=== PATIENT | female | born 1965 | race Caucasian/White ===

== ENCOUNTER 2016-12-04 14:08 | Inpatient (IN) | payer MEDICARE, MEDICAID ==
--- NOTE | 2016-12-04 14:45 | ED Physician Chart ---
Chief Complaint/HPI - Patient Information Date Seen:: 12/04/16 Time Seen:: 14:30 Chief Complaint:: auditory hallucinations History of Present Illness:: for the last two days has been hearing voices telling her to hurt herself and others. Has had cough productive of green sputum for the last one week. Denies fever. Allergies:: Allergies Allergy/AdvReac Type Severity Reaction Status Date / Time No Known Allergies Allergy Verified 12/04/16 14:38 Historian:: Patient Review:: Nurse's Note Reviewed, EMS run form Reviewed Review of Systems - Review of Systems General/Constitutional: No fever, No chills Skin: No skin lesions Head: No headache Eyes: No loss of vision ENT: No earache Neck: No neck pain Cardio Vascular: No chest pain Pulmonary: No SOB GI: No nausea, No vomiting, No diarrhea G/U: No dysuria Musculoskeletal: No bone or joint pain, No back pain Endocrine: No polyuria, No polydipsia Psychiatric: Prior psych history Hematopoietic: No bruising Allergic/Immuno: No urticaria Neurological: No syncope Past Medical History - Past Medical History Past Medical History: DM, Asthma/COPD, Other Family History: Diabetes Melitus, HTN Social History: Smoker, Alcohol, Other (smokes two pack per day; drinks alcohol occasionally) Surgical History: Appendectomy Psychiatricy History: Schizophrenia Medication: Reviewed Family Medical History - Family Member Mother Name:: KAMILLE STEVE Age: 99 Ethnicity: Non- Living Status: Hx Family Hypertension: Yes Hx Family Diabetes: Yes Physical Exam - Physical Examination General/Constitutional: Well-developed, well-nourished, Alert, No distress Head: Atraumatic Eyes: Lids, conjuctiva normal, PERRL Skin: Nl inspection, No rash, No skin lesions, No ecchymosis ENMT: External ears, nose nl, TM canals nl, Nasal exam nl, Oropharynx nl, Tonsils nl Other ENMT comments:: 4/4 peridontal disease Neck: No nuchal rigidity Respiratory: Nl effort/Exclusion, Clear to Auscultation Other Respiratory comments:: diffusely decreased expiratory sounds Cardio Vascular: RRR, NL S1 S2 Other Cardio Vascular comments:: 2/6 systolic murmur GI: No tenderness/rebounding/guarding, No organomegaly, No hernia, Normal BS's, Nondistended, No mass/bruits, No McBurney tenderness : No CVA tenderness Extremities: Normal digits & nails Neuro/Psych: Alert/oriented, No focal deficits Misc: Normal back, No paraspinal tenderness Labs/Radiology/EKG Results - Lab Results Comments:: Laboratory Results - last 24 hr 12/04/16 12/04/16 12/04/16 14:25 14:45 14:45 WBC 5.6 RBC 4.82 Hgb 15.6 H Hct 45.9 H MCV 95.2 MCH 32.3 H MCHC Differential 33.9 RDW 12.7 Plt Count 123 L MPV 7.8 Neutrophils % 59.7 Lymphocytes % 27.6 Monocytes % 6.9 Eosinophils % 5.3 H Basophils % 0.5 Sodium 139 Potassium 3.7 Chloride 108 H Carbon Dioxide 27.4 Anion Gap 7.3 BUN 16 Creatinine 0.6 Est GFR ( Amer) > 60.0 Est GFR (Non-Af Amer) > 60.0 BUN/Creatinine Ratio 26.7 Glucose 99 Uric Acid Calcium 9.3 Total Bilirubin 0.7 AST 18 ALT 15 Alkaline Phosphatase 89 Total Protein 6.8 Albumin 3.7 Globulin 3.1 Albumin/Globulin Ratio 1.2 TSH Urine Source CLEAN C Urine Color YELLOW Urine Clarity HAZY Urine pH 5.5 Ur Specific [place] 1.025 Urine Protein NEGATIVE Urine Glucose (UA) NEGATIVE Urine Ketones NEGATIVE Urine Blood TRACE Urine Nitrate POSITIVE H Urine Bilirubin NEGATIVE Urine Urobilinogen 0.2 Ur Leukocyte Esterase SMALL H Urine RBC 2-5 Urine WBC 6-10 H Ur Epithelial Cells FEW Urine Bacteria MODERATE 12/04/16 12/04/16 14:45 14:45 WBC RBC Hgb Hct MCV MCH MCHC Differential RDW Plt Count MPV Neutrophils % Lymphocytes % Monocytes % Eosinophils % Basophils % Sodium Potassium Chloride Carbon Dioxide Anion Gap BUN Creatinine Est GFR ( Amer) Est GFR (Non-Af Amer) BUN/Creatinine Ratio Glucose Uric Acid 4.5 Calcium Total Bilirubin AST ALT Alkaline Phosphatase Total Protein Albumin Globulin Albumin/Globulin Ratio TSH 0.89 Urine Source Urine Color Urine Clarity Urine pH Ur Specific [place] Urine Protein Urine Glucose (UA) Urine Ketones Urine Blood Urine Nitrate Urine Bilirubin Urine Urobilinogen Ur Leukocyte Esterase Urine RBC Urine WBC Ur Epithelial Cells Urine Bacteria - EKG Interpretations Rhythm: NSR [place]: normal Rate: 74 Comments:: notched P waves in inferior leads ED Septic Shock - . Is Septic Shock (SBP<90, OR Lactate>4 mmol\L) present?: No Reassessment (Disposition) - Reassessment Reassessment Condition:: Unchanged - Diagnosis Diagnosis:: COPD; nicotine abuse; self harm ideation - Patient Disposition Admitted to:: Med/Surg Spoke to:: Olu Reich Admitting Medical Physician:: Olu Recih Condition at Disposition:: Unchanged
[2016-12-04 14:52] LABS: % BASOPHILS 0.5 % (0.0-2.0); % EOSINOPHILS 5.3 % (0.0-5.0); % LYMPHOCYTES 27.6 % (20.0-50.0); % MONOCYTES 6.9 % (2.0-10.0); % NEUTROPHILS 59.7 % (40.0-80.0); HEMATOCRIT 45.9 % (35.0-45.0); HEMOGLOBIN 15.6 gm/dL (11.7-15.5); MEAN CELL VOLUME 95.2 fl (81-100); MEAN CORPUSCULAR HEMOGLOBIN 32.3 pg (27.0-31.0); MEAN CORPUSCULAR HGB CONC 33.9 pg (28.0-36.0); MEAN PLATELET VOLUME 7.8 fl; NEUTROPHILE ABSOLUTE 3.4 Th/cmm (1.8-8.0); PLATELET COUNT 123 Th/cmm (150-400); RED BLOOD COUNT 4.82 Mil/cmm (3.80-5.10); RED CELL DISTRIBUTION WIDTH 12.7 % (11.5-20.0); WHITE BLOOD COUNT 5.6 Th/cmm (4.8-10.8)
[2016-12-04 15:05] LABS: ALB/GLOB RATIO 1.2 (1.0-1.8); ALKALINE PHOSPHATASE 89 U/L (34-104); ANION GAP 7.3 (7.0-16.0); BILIRUBIN,TOTAL 0.7 mg/dL (0.3-1.0); BUN - UREA NITROGEN 16 mg/dL (7-25); BUN/CREATININE RATIO 26.7; CALCIUM SERUM 9.3 mg/dL (8.6-10.3); CARBON DIOXIDE 27.4 mEq/L (21.0-31.0); CHLORIDE 108 mEq/L (98-107); CREATININE - SERUM 0.6 mg/dL (0.6-1.2); GLUCOSE 99 mg/dL (70-105); POTASSIUM SERUM 3.7 mEq/L (3.5-5.1); SGOT 18 U/L (13-39); SGPT/ALT 15 U/L (7-52); SODIUM SERUM 139 mEq/L (136-145)
[2016-12-04 15:14] LABS: URINE BILIRUBIN NEGATIVE (NEGATIVE); URINE BLOOD TRACE (NEGATIVE); URINE COLOR YELLOW; URINE GLUCOSE (UA) NEGATIVE (NEGATIVE); URINE KETONE NEGATIVE (NEGATIVE); URINE PH 5.5; URINE PROTEIN NEGATIVE (NEGATIVE); URINE UROBILINOGEN 0.2 E.U./dL (0.2 - 1.0)
[2016-12-04 15:16] LABS: URINE BACTERIA MODERATE /hpf (NONE SEEN); URINE EPITHELIAL CELLS FEW /lpf (FEW)
--- NOTE | 2016-12-04 16:05 | Diagnostic Imaging Report ---
Portable chest x-ray History: Shortness of breath, COPD Allowing for portable technique the heart size is normal. No focal pulmonary parenchymal processes. No hilar or mediastinal abnormalities. Degenerative changes seen in the spine. Impression: No acute abnormalities.
--- NOTE | 2016-12-04 18:52 | Admit Criteria Form ---
Admit Criteria Forms - Admit Criteria Diagnosis: PSYCHIATRIC DISORDERS Clinical Indications for Inpatient Care (Place 'X' for any and all applicable criteria): Ongoing inpatient care may be needed for ANY ONE of the following(1)(2)(3)(4)(6) (7)(8): [ ]I. Danger to self or others not manageable at lower level of care. [ ]II. Grave disability (eg, inability to perform self care necessary at lower level of care) [ ]III. Agitation or inappropriate behavior interfering with care for primary condition (eg, attempting to discontinue lines or drains prematurely, unable to cooperate with respiratory care) [X]IV. Severe disability or disorder indicated by ALL of the following: [X]a) Severe behavioral health disorder-related symptoms or condition indicated by ANY ONE of the following: [ ]i) Severe problem with cognition, memory, judgment, or impulse control [X]ii) Severe clinical manifestations (eg, hallucinations, delusions, other acute psychotic symptoms, kaiden, extreme agitation or anxiety) [X]b) Patient management at lower level of care is not feasible until acute intervention or modification is initiated. Extended stay beyond goal length of stay for the primary condition may be indicated when ANY ONE of the following is present: (1)(2)(3)(4): [ ]a) Patient is a danger to self or others and not manageable at lower level of care. [ ]b) Behavior crisis management, including physical or chemical restraints, is required and is not available at a lower level of care. [ ]c) Behavioral symptoms (e.g., agitation, somnolence, inappropriate behavior) are present, and are not manageable at a lower level of care. [ ]d) Patient cannot understand follow-up treatment and crisis plan. [ ]e) Provider and supports are not sufficiently available at lower level of care. [ ]f) Patient cannot participate (e.g., verify absence of plan for harm) and is in needed of monitoring. The original [facility] content created by [facility] has been revised. The portions of the content which have been revised are identified through the use of italic text or in bold, and [facility] has neither reviewed nor approved the modified material. All other unmodified content is copyright [facility]. Please see references footnoted in the original [facility] edition 2016 Admit Criteria Met?: Yes
[2016-12-04] MEDS ORDERED: guaiFENesin 200 MG/10 ML UDC PO PRN (20:20)
[2016-12-04] MEDS ORDERED: Albuterol Nebulizer 2.5mg/3mL IH SCH (21:00)
[2016-12-04] MEDS ORDERED: Ipratropium Neb 0.5 mg/2.5 mL UD IH SCH (21:00)
[2016-12-04] MEDS: Sodium Chloride 0.45% 1,000 ML IV SCH (21:08)
[2016-12-04] MEDS: Levofloxacin 500mg/100mL 500 MG/100 ML BAG IV SCH (21:09)
[2016-12-04] MEDS: methylPREDNISolone SS 40 mg Vial IVP SCH (21:11)
[2016-12-04] MEDS: INSULIN ASPART, RECOMBINANT 100 UNITS/ML SUBQ SCH (21:18)
[2016-12-05] MEDS: methylPREDNISolone SS 40 mg Vial IVP SCH ×3 (05:39→20:21)
[2016-12-05] MEDS: INSULIN ASPART, RECOMBINANT 100 UNITS/ML SUBQ SCH ×4 (06:38→20:28)
[2016-12-05] MEDS: Ipratropium Neb 0.5 mg/2.5 mL UD HHN SCH ×4 (06:56→19:06)
[2016-12-05] MEDS: Benztropine 1 MG TAB PO SCH ×2 (08:58→17:31)
[2016-12-05] MEDS ORDERED: PAROXETINE MESYLATE PO SCH (09:00)
[2016-12-05] MEDS ORDERED: METFORMIN HCL 500 MG PO SCH (09:00)
[2016-12-05 11:09] LABS: ALB/GLOB RATIO 1.1 (1.0-1.8); ALKALINE PHOSPHATASE 83 U/L (34-104); ANION GAP 10.1 (7.0-16.0); BILIRUBIN,TOTAL 0.3 mg/dL (0.3-1.0); BUN - UREA NITROGEN 18 mg/dL (7-25); CALCIUM SERUM 9.3 mg/dL (8.6-10.3); CARBON DIOXIDE 24.5 mEq/L (21.0-31.0); CHLORIDE 105 mEq/L (98-107); CREATININE - SERUM 0.5 mg/dL (0.6-1.2); GLUCOSE 237 mg/dL (70-105); POTASSIUM SERUM 3.6 mEq/L (3.5-5.1); SGOT 13 U/L (13-39); SGPT/ALT 13 U/L (7-52); SODIUM SERUM 136 mEq/L (136-145)
[2016-12-05 11:12] LABS: BNP 24.9 pg/mL (5.0-100.0)
[2016-12-05] MEDS: Albuterol Nebulizer 2.5mg/3mL HHN SCH ×2 (15:07→19:06)
[2016-12-05] MEDS: Sodium Chloride 0.45% 1,000 ML IV SCH (20:19)
[2016-12-05] MEDS: Levofloxacin 500mg/100mL 500 MG/100 ML BAG IV SCH (20:20)
--- NOTE | 2016-12-05 20:57 | History & Physical ---
CHIEF COMPLAINT: Increasing agitation and increasing shortness of breath. HISTORY OF PRESENT ILLNESS: This is a 51 years old female with history of diabetes, hypertension, hypercholesterolemia, gout who was admitted from Board and Care ____, increasing agitation and shortness of breath. The patient was seen in the ER and diagnosed with COPD exacerbation and ____ disorder. The patient was admitted for further management. PAST MEDICAL HISTORY: As mentioned in the history present illness. PAST SURGICAL HISTORY: Appendectomy. ALLERGIES: No known drug allergies. MEDICATIONS: Paxil, ____, Atrovent, Lotensin, Haldol, Zyprexa, Zocor ____. FAMILY HISTORY: Noncontributory. SOCIAL HISTORY: The patient smokes 2 packs per day, drinks on occasion, ____ crack cocaine. Denies intravenous drug use. The patient ____ with 5 children. REVIEW OF SYSTEMS: GENERAL: Complains of not feeling well. HEENT: No blurred vision. NECK: No neck pain. LUNGS: ____ COPD. ____. HEART: The patient with hypertension and diabetes. ABDOMEN: No nausea, vomiting, or abdominal pain. GENITOURINARY: The patient denies any increased frequency or dysuria. NEUROLOGIC: No headaches, seizure or syncope. PSYCHIATRIC: As stated above. PHYSICAL EXAMINATION: VITAL SIGNS: Blood pressure 126/72, respirations 18, pulse 78, temperature 97.7. GENERAL: An elderly female of her stated age. NECK: Supple. No mass. LUNGS: ____ rhonchi. HEART: Regular rate and rhythm without appreciable murmurs. ABDOMEN: Soft, nontender, positive bowel sounds. EXTREMITIES: No clubbing, cyanosis or edema. NEUROLOGIC: Limited movement of all 4 extremities. LABORATORY DATA: WBC ____, hemoglobin 15, platelets 123. Sodium ____, creatinine 0.6. Blood sugar 237 ____. Albumin ____. UA, 10 wbc's. ASSESSMENT: 1. Acute chronic obstructive pulmonary disease exacerbation. 2. Acute bronchitis. 3. Urinary tract infection. 4. Increasing agitation. 5. Schizoaffective disorder. 6. Diabetes. 7. Erythrocytosis. 8. Low albumin. 9. Thrombocytopenia. 10. Gout. 11. Hypercholesterolemia. PLAN: We will continue the patient on gentle hydration ____ also on bronchodilator treatment and IV steroids ____. Blood culture has been sent. The patient was referred to Psychiatry. This was discussed with nursing staff as well as the patient. JOB# [id number]
[2016-12-06] MEDS: methylPREDNISolone SS 40 mg Vial IVP SCH ×3 (05:22→20:46)
[2016-12-06] MEDS: Ipratropium Neb 0.5 mg/2.5 mL UD HHN SCH ×4 (07:14→19:50)
[2016-12-06] MEDS: Albuterol Nebulizer 2.5mg/3mL HHN SCH ×4 (07:14→19:49)
[2016-12-06] MEDS: Benztropine 1 MG TAB PO SCH ×2 (09:39→17:50)
--- NOTE | 2016-12-06 10:58 | Internal Medicine Prog Note ---
Internal Medicine Subjective - Subjective Service Date: 12/06/16 Patient seen and examined:: with staff Patient is:: awake, verbal Per staff patient is:: no adverse event Internal Medicine Objective - Results Result Diagrams: 12/04/16 14:45 12/05/16 10:13 Recent Labs: Laboratory Last Values WBC 5.6 Th/cmm (4.8-10.8) 12/04/16 14:45 RBC 4.82 Mil/cmm (3.80-5.10) 12/04/16 14:45 Hgb 15.6 gm/dL (11.7-15.5) H 12/04/16 14:45 Hct 45.9 % (35.0-45.0) H 12/04/16 14:45 MCV 95.2 fl (81-100) 12/04/16 14:45 MCH 32.3 pg (27.0-31.0) H 12/04/16 14:45 MCHC Differential 33.9 pg (28.0-36.0) 12/04/16 14:45 RDW 12.7 % (11.5-20.0) 12/04/16 14:45 Plt Count 123 Th/cmm (150-400) L 12/04/16 14:45 MPV 7.8 fl 12/04/16 14:45 Neutrophils % 59.7 % (40.0-80.0) 12/04/16 14:45 Lymphocytes % 27.6 % (20.0-50.0) 12/04/16 14:45 Monocytes % 6.9 % (2.0-10.0) 12/04/16 14:45 Eosinophils % 5.3 % (0.0-5.0) H 12/04/16 14:45 Basophils % 0.5 % (0.0-2.0) 12/04/16 14:45 Sodium 136 mEq/L (136-145) 12/05/16 10:13 Potassium 3.6 mEq/L (3.5-5.1) 12/05/16 10:13 Chloride 105 mEq/L (98-107) 12/05/16 10:13 Carbon Dioxide 24.5 mEq/L (21.0-31.0) 12/05/16 10:13 Anion Gap 10.1 (7.0-16.0) 12/05/16 10:13 BUN 18 mg/dL (7-25) 12/05/16 10:13 Creatinine 0.5 mg/dL (0.6-1.2) L 12/05/16 10:13 Est GFR ( Amer) > 60.0 ml/min (>90) 12/05/16 10:13 Est GFR (Non-Af Amer) > 60.0 ml/min 12/05/16 10:13 BUN/Creatinine Ratio 36.0 12/05/16 10:13 Glucose 237 mg/dL (70-105) H 12/05/16 10:13 POC Glucose 235 MG/DL (70 - 105) H 12/06/16 09:38 Hemoglobin A1c % 5.3 % (4.0-6.0) 12/05/16 10:13 Uric Acid 4.5 mg/dL (2.3-6.6) 12/04/16 14:45 Calcium 9.3 mg/dL (8.6-10.3) 12/05/16 10:13 Total Bilirubin 0.3 mg/dL (0.3-1.0) 12/05/16 10:13 AST 13 U/L (13-39) 12/05/16 10:13 ALT 13 U/L (7-52) 12/05/16 10:13 Alkaline Phosphatase 83 U/L (34-104) 12/05/16 10:13 Ammonia 56 umol/L (16-53) H 12/05/16 10:13 B-Natriuretic Peptide 24.9 pg/mL (5.0-100.0) 12/05/16 10:13 Total Protein 6.8 gm/dL (6.0-8.3) 12/05/16 10:13 Albumin 3.6 gm/dL (3.7-5.3) L 12/05/16 10:13 Globulin 3.2 gm/dL 12/05/16 10:13 Albumin/Globulin Ratio 1.1 (1.0-1.8) 12/05/16 10:13 TSH 0.89 uIU/ml (0.34-5.60) 12/04/16 14:45 Urine Source CLEAN C 12/04/16 14:25 Urine Color YELLOW 12/04/16 14:25 Urine Clarity HAZY (CLEAR) 12/04/16 14:25 Urine pH 5.5 12/04/16 14:25 Ur Specific [place] 1.025 (1.005-1.030) 12/04/16 14:25 Urine Protein NEGATIVE mg/dL (NEGATIVE) 12/04/16 14:25 Urine Glucose (UA) NEGATIVE mg/dL (NEGATIVE) 12/04/16 14:25 Urine Ketones NEGATIVE mg/dL (NEGATIVE) 12/04/16 14:25 Urine Blood TRACE (NEGATIVE) 12/04/16 14:25 Urine Nitrate POSITIVE (NEGATIVE) H 12/04/16 14:25 Urine Bilirubin NEGATIVE (NEGATIVE) 12/04/16 14:25 Urine Urobilinogen 0.2 E.U./dL (0.2 - 1.0) 12/04/16 14:25 Ur Leukocyte Esterase SMALL (NEGATIVE) H 12/04/16 14:25 Urine RBC 2-5 /hpf (0-5) 12/04/16 14:25 Urine WBC 6-10 /hpf (0-5) H 12/04/16 14:25 Ur Epithelial Cells FEW /lpf (FEW) 12/04/16 14:25 Urine Bacteria MODERATE /hpf (NONE SEEN) 12/04/16 14:25 RPR NONREACTIVE (NONREACTIVE) 12/04/16 14:45 - Physical Exam Vitals and I&O: Vital Signs Temp 98.6 F 12/06/16 08:00 Pulse 106 12/06/16 09:38 Resp 18 12/06/16 08:00 BP 147/94 12/06/16 09:38 Pulse Ox 96 12/05/16 20:00 Intake & Output 12/05/16 12/06/16 12/06/16 18:59 06:59 18:59 Intake Total 3000 100 Balance 3000 100 Intake: Intake, IV Amount 1000 100 Levofloxacin 500mg/100mL 100 500 mg In 100 ml @ 100 mls/hr IV Q24HR AILYN Rx#: [id number] Sodium Chloride 0.45% 1, 1000 000 ml @ 70 mls/hr IV . [id number] AILYN Rx#:[id number] Oral 2000 Other: # Voids 3 Active Medications: Current Medications Acetaminophen (Tylenol) 650 mg PO Q4HR PRN PRN Reason: Pain or Fever >101 Stop: 02/02/17 20:19 Albuterol Sulfate (Albuterol 2.5mg/3ml Neb Ud) 2.5 mg HHN QIDRT AILYN Stop: 02/03/17 10:59 Last Admin: 12/06/16 07:14 Dose: 2.5 mg Allopurinol (Zyloprim) 100 mg PO DAILY AILYN Stop: 02/03/17 08:59 Last Admin: 12/06/16 09:38 Dose: 100 mg Benazepril HCl (Lotensin) 20 mg PO DAILY AILYN Stop: 02/03/17 08:59 Last Admin: 12/06/16 09:38 Dose: 20 mg Benztropine Mesylate (Cogentin) 1 mg PO BID AILYN Stop: 02/03/17 08:59 Last Admin: 12/06/16 09:39 Dose: 1 mg Guaifenesin (Robitussin) 200 mg PO Q4HR PRN PRN Reason: Cough or Congestion Stop: 02/02/17 20:19 Haloperidol (Haldol) 5 mg PO BID AILYN PRN Reason: Protocol Stop: 02/03/17 08:59 Last Admin: 12/06/16 09:39 Dose: 5 mg Heparin Sodium (Porcine) (Heparin) 5,000 units SUBQ Q12HR AILYN Stop: 02/02/17 20:59 Last Admin: 12/06/16 09:38 Dose: 5,000 units Levofloxacin (Levaquin Pb) 500 mg in 100 mls @ 100 mls/hr IV Q24HR AILYN Stop: 02/02/17 20:29 Last Infusion: 12/05/16 21:20 Dose: Infused Sodium Chloride (Nacl 0.45%) 1,000 mls @ 70 mls/hr IV .[id number] [facility] Stop: 02/02/17 20:29 Last Admin: 12/05/16 20:19 Dose: 70 mls/hr Insulin Aspart (Novolog) 0 units SUBQ ACHS AILYN PRN Reason: Protocol Stop: 02/02/17 20:59 Last Admin: 12/05/16 20:28 Dose: 2 units Ipratropium [place] (Atrovent Neb 0.5mg/2.5ml) 0.5 mg HHN QIDRT [facility] Stop: 02/02/17 20:59 Last Admin: 12/06/16 07:14 Dose: 0.5 mg Metformin HCl (Glucophage) 850 mg PO BIDWM AILYN Stop: 02/03/17 17:59 Last Admin: 12/06/16 09:39 Dose: 850 mg Methylprednisolone Sodium Succinate (Solu-Medrol) 40 mg IVP Q8HR AILYN Stop: 02/03/17 12:59 Last Admin: 12/06/16 05:22 Dose: 40 mg Montelukast Sodium (Singulair) 10 mg PO DAILY AILYN Stop: 02/03/17 08:59 Last Admin: 12/05/16 08:57 Dose: 10 mg Olanzapine (Zyprexa) 5 mg PO HS AILYN PRN Reason: Protocol Stop: 02/02/17 20:59 Last Admin: 12/05/16 20:21 Dose: 5 mg Ondansetron HCl (Zofran) 4 mg IV Q8H PRN PRN Reason: Nausea / Vomiting Stop: 02/02/17 20:19 Paroxetine HCl (Paxil) 20 mg PO DAILY AILYN PRN Reason: Protocol Stop: 02/03/17 17:59 Last Admin: 12/06/16 09:39 Dose: 20 mg Simvastatin (Zocor) 40 mg PO QPM AILYN PRN Reason: Protocol Stop: 02/03/17 16:59 Last Admin: 12/05/16 17:31 Dose: 40 mg Temazepam (Restoril) 30 mg PO HS [facility] Stop: 02/02/17 21:29 Last Admin: 12/05/16 20:21 Dose: 30 mg General: alert HEENT: NC/AT, PERRLA Neck: Supple Lungs: CTAB Cardiovascular: RRR, Normal S1, Normal S2, without murmur Abdomen: soft non-tender, non-distended, positive bowel sound Neurological: no change Internal Medicine Assmt/Plan - Assessment Assessment: ACUTE COPD EXCERBATION ACUTE BRONCHITIS UTI INCREASING AGITATION SCHIZOAFFECTIVE DM-2 ERYTHROCYTOSIS LOW ALBUMIN THROMBOCYTOPENIA GOUT HYPERCHOLESTEREMIA - Plan Plan: CONTINUE IVABX BRONCHODILATORS SUPPLEMENTAL O2 F/U LABS
[2016-12-06 13:11] LABS: FOLIC ACID 15.1 ng/mL (>3.0)
[2016-12-06] MEDS: Sodium Chloride 0.45% 1,000 ML IV SCH (13:18)
[2016-12-06] MEDS: INSULIN ASPART, RECOMBINANT 100 UNITS/ML SUBQ SCH ×3 (13:20→20:54)
[2016-12-06] MEDS: Levofloxacin 500mg/100mL 500 MG/100 ML BAG IV SCH (20:45)
[2016-12-07] MEDS: methylPREDNISolone SS 40 mg Vial IVP SCH ×3 (05:02→20:30)
[2016-12-07] MEDS: Sodium Chloride 0.45% 1,000 ML IV SCH ×2 (05:02→20:29)
[2016-12-07] MEDS: INSULIN ASPART, RECOMBINANT 100 UNITS/ML SUBQ SCH ×4 (06:33→20:36)
[2016-12-07] MEDS: Albuterol Nebulizer 2.5mg/3mL HHN SCH ×4 (07:43→19:06)
[2016-12-07] MEDS: Ipratropium Neb 0.5 mg/2.5 mL UD HHN SCH ×4 (07:43→19:07)
[2016-12-07] MEDS: Benztropine 1 MG TAB PO SCH ×2 (10:09→17:03)
[2016-12-07 11:38] LABS: HEMATOCRIT 41.9 % (35.0-45.0); HEMOGLOBIN 14.5 gm/dL (11.7-15.5); MEAN CELL VOLUME 94.2 fl (81-100); MEAN CORPUSCULAR HEMOGLOBIN 32.5 pg (27.0-31.0); MEAN CORPUSCULAR HGB CONC 34.5 pg (28.0-36.0); MEAN PLATELET VOLUME 8.2 fl; RED BLOOD COUNT 4.45 Mil/cmm (3.80-5.10); RED CELL DISTRIBUTION WIDTH 12.6 % (11.5-20.0)
[2016-12-07 11:43] LABS: PLATELET COUNT 157 Th/cmm (150-400); WHITE BLOOD COUNT 8.9 Th/cmm (4.8-10.8)
[2016-12-07 11:55] LABS: ANION GAP 9.4 (7.0-16.0); BUN - UREA NITROGEN 16 mg/dL (7-25); CALCIUM SERUM 9.4 mg/dL (8.6-10.3); CARBON DIOXIDE 24.4 mEq/L (21.0-31.0); CHLORIDE 105 mEq/L (98-107); CREATININE - SERUM 0.5 mg/dL (0.6-1.2); GLUCOSE 209 mg/dL (70-105); POTASSIUM SERUM 3.8 mEq/L (3.5-5.1); SODIUM SERUM 135 mEq/L (136-145)
--- NOTE | 2016-12-07 11:59 | Internal Medicine Prog Note ---
Internal Medicine Subjective - Subjective Service Date: 12/07/16 (awake, alert, anxious to smoke a cigarette, afebrile, ) Patient seen and examined:: with staff Internal Medicine Objective - Results Result Diagrams: 12/07/16 11:17 12/05/16 10:13 Recent Labs: Laboratory Last Values WBC 8.9 Th/cmm (4.8-10.8) D 12/07/16 11:17 RBC 4.45 Mil/cmm (3.80-5.10) 12/07/16 11:17 Hgb 14.5 gm/dL (11.7-15.5) 12/07/16 11:17 Hct 41.9 % (35.0-45.0) 12/07/16 11: MCV 94.2 fl (81-100) 12/07/16 11:17 MCH 32.5 pg (27.0-31.0) H 12/07/16 11: MCHC Differential 34.5 pg (28.0-36.0) 12/07/16 11:17 RDW 12.6 % (11.5-20.0) 12/07/16 11:17 Plt Count 157 Th/cmm (150-400) D 12/07/16 11:17 MPV 8.2 fl 12/07/16 11:17 Neutrophils % 59.7 % (40.0-80.0) 12/04/16 14:45 Lymphocytes % 27.6 % (20.0-50.0) 12/04/16 14:45 Monocytes % 6.9 % (2.0-10.0) 12/04/16 14:45 Eosinophils % 5.3 % (0.0-5.0) H 12/04/16 14:45 Basophils % 0.5 % (0.0-2.0) 12/04/16 14:45 Sodium 136 mEq/L (136-145) 12/05/16 10:13 Potassium 3.6 mEq/L (3.5-5.1) 12/05/16 10:13 Chloride 105 mEq/L (98-107) 12/05/16 10:13 Carbon Dioxide 24.5 mEq/L (21.0-31.0) 12/05/16 10:13 Anion Gap 10.1 (7.0-16.0) 12/05/16 10:13 BUN 18 mg/dL (7-25) 12/05/16 10:13 Creatinine 0.5 mg/dL (0.6-1.2) L 12/05/16 10:13 Est GFR ( Amer) > 60.0 ml/min (>90) 12/05/16 10:13 Est GFR (Non-Af Amer) > 60.0 ml/min 12/05/16 10:13 BUN/Creatinine Ratio 36.0 12/05/16 10:13 Glucose 237 mg/dL (70-105) H 12/05/16 10:13 POC Glucose 220 MG/DL (70 - 105) H 12/07/16 05:44 Hemoglobin A1c % 5.3 % (4.0-6.0) 12/05/16 10:13 Uric Acid 4.5 mg/dL (2.3-6.6) 12/04/16 14:45 Calcium 9.3 mg/dL (8.6-10.3) 12/05/16 10:13 Total Bilirubin 0.3 mg/dL (0.3-1.0) 12/05/16 10:13 AST 13 U/L (13-39) 12/05/16 10:13 ALT 13 U/L (7-52) 12/05/16 10:13 Alkaline Phosphatase 83 U/L (34-104) 12/05/16 10:13 Ammonia 56 umol/L (16-53) H 12/05/16 10:13 B-Natriuretic Peptide 24.9 pg/mL (5.0-100.0) 12/05/16 10:13 Total Protein 6.8 gm/dL (6.0-8.3) 12/05/16 10:13 Albumin 3.6 gm/dL (3.7-5.3) L 12/05/16 10:13 Globulin 3.2 gm/dL 12/05/16 10:13 Albumin/Globulin Ratio 1.1 (1.0-1.8) 12/05/16 10:13 Vitamin B12 330 pg/mL (211-946) 12/05/16 10:13 Folic Acid 15.1 ng/mL (>3.0) 12/05/16 10:13 TSH 0.89 uIU/ml (0.34-5.60) 12/04/16 14:45 Urine Source CLEAN C 12/04/16 14:25 Urine Color YELLOW 12/04/16 14:25 Urine Clarity HAZY (CLEAR) 12/04/16 14:25 Urine pH 5.5 12/04/16 14:25 Ur Specific [place] 1.025 (1.005-1.030) 12/04/16 14:25 Urine Protein NEGATIVE mg/dL (NEGATIVE) 12/04/16 14:25 Urine Glucose (UA) NEGATIVE mg/dL (NEGATIVE) 12/04/16 14:25 Urine Ketones NEGATIVE mg/dL (NEGATIVE) 12/04/16 14:25 Urine Blood TRACE (NEGATIVE) 12/04/16 14:25 Urine Nitrate POSITIVE (NEGATIVE) H 12/04/16 14:25 Urine Bilirubin NEGATIVE (NEGATIVE) 12/04/16 14:25 Urine Urobilinogen 0.2 E.U./dL (0.2 - 1.0) 12/04/16 14:25 Ur Leukocyte Esterase SMALL (NEGATIVE) H 12/04/16 14:25 Urine RBC 2-5 /hpf (0-5) 12/04/16 14:25 Urine WBC 6-10 /hpf (0-5) H 12/04/16 14:25 Ur Epithelial Cells FEW /lpf (FEW) 12/04/16 14:25 Urine Bacteria MODERATE /hpf (NONE SEEN) 12/04/16 14:25 RPR NONREACTIVE (NONREACTIVE) 12/04/16 14:45 - Physical Exam Vitals and I&O: Vital Signs Temp 98.2 F 12/07/16 04:00 Pulse 92 12/07/16 11:05 Resp 18 12/07/16 11:05 BP 136/84 12/07/16 10:09 Pulse Ox 96 12/07/16 11:05 Intake & Output 12/06/16 12/07/16 12/07/16 18:59 06:59 18:59 Intake Total 1000 1900 Balance 1000 1900 Intake: Intake, IV Amount 1000 1100 Levofloxacin 500mg/100mL 100 500 mg In 100 ml @ 100 mls/hr IV Q24HR AILYN Rx#: [id number] Sodium Chloride 0.45% 1, 1000 1000 000 ml @ 70 mls/hr IV . [id number] AILYN Rx#:[id number] Oral 800 Other: # Voids 5 Stool Characteristics Soft Formed Active Medications: Current Medications Acetaminophen (Tylenol) 650 mg PO Q4HR PRN PRN Reason: Pain or Fever >101 Stop: 02/02/17 20:19 Albuterol Sulfate (Albuterol 2.5mg/3ml Neb Ud) 2.5 mg HHN QIDRT [facility] Stop: 02/03/17 10:59 Last Admin: 12/07/16 11:03 Dose: 2.5 mg Allopurinol (Zyloprim) 100 mg PO DAILY AILYN Stop: 02/03/17 08:59 Last Admin: 12/07/16 10:10 Dose: 100 mg Benazepril HCl (Lotensin) 20 mg PO DAILY AILYN Stop: 02/03/17 08:59 Last Admin: 12/07/16 10:09 Dose: 20 mg Benztropine Mesylate (Cogentin) 1 mg PO BID [facility] Stop: 02/03/17 08:59 Last Admin: 12/07/16 10:09 Dose: 1 mg Guaifenesin (Robitussin) 200 mg PO Q4HR PRN PRN Reason: Cough or Congestion Stop: 02/02/17 20:19 Haloperidol (Haldol) 5 mg PO BID AILYN PRN Reason: Protocol Stop: 02/03/17 08:59 Last Admin: 12/07/16 10:13 Dose: 5 mg Heparin Sodium (Porcine) (Heparin) 5,000 units SUBQ Q12HR [facility] Stop: 02/02/17 20:59 Last Admin: 12/07/16 10:07 Dose: 5,000 units Levofloxacin (Levaquin Pb) 500 mg in 100 mls @ 100 mls/hr IV Q24HR [facility] Stop: 02/02/17 20:29 Last Infusion: 12/06/16 21:45 Dose: Infused Sodium Chloride (Nacl 0.45%) 1,000 mls @ 70 mls/hr IV .[id number] [facility] Stop: 02/02/17 20:29 Last Admin: 12/07/16 05:02 Dose: 70 mls/hr Insulin Aspart (Novolog) 0 units SUBQ ACHS AILYN PRN Reason: Protocol Stop: 02/02/17 20:59 Last Admin: 12/07/16 06:33 Dose: 2 units Ipratropium [place] (Atrovent Neb 0.5mg/2.5ml) 0.5 mg HHN QIDRT [facility] Stop: 02/02/17 20:59 Last Admin: 12/07/16 11:03 Dose: 0.5 mg Metformin HCl (Glucophage) 850 mg PO BIDWM AILYN Stop: 02/03/17 17:59 Last Admin: 12/07/16 10:09 Dose: 850 mg Methylprednisolone Sodium Succinate (Solu-Medrol) 40 mg IVP Q8HR AILYN Stop: 02/03/17 12:59 Last Admin: 12/07/16 05:02 Dose: 40 mg Montelukast Sodium (Singulair) 10 mg PO DAILY AILYN Stop: 02/03/17 08:59 Last Admin: 12/07/16 10:10 Dose: 10 mg Olanzapine (Zyprexa) 5 mg PO HS AILYN PRN Reason: Protocol Stop: 02/02/17 20:59 Last Admin: 12/06/16 20:45 Dose: 5 mg Ondansetron HCl (Zofran) 4 mg IV Q8H PRN PRN Reason: Nausea / Vomiting Stop: 02/02/17 20:19 Paroxetine HCl (Paxil) 20 mg PO DAILY AILYN PRN Reason: Protocol Stop: 02/03/17 17:59 Last Admin: 12/07/16 10:10 Dose: 20 mg Simvastatin (Zocor) 40 mg PO QPM AILYN PRN Reason: Protocol Stop: 02/03/17 16:59 Last Admin: 12/06/16 17:49 Dose: 40 mg Temazepam (Restoril) 30 mg PO HS [facility] Stop: 02/02/17 21:29 Last Admin: 12/06/16 20:45 Dose: 30 mg General: alert HEENT: NC/AT, PERRLA Neck: Supple Lungs: CTAB Cardiovascular: RRR, Normal S1, Normal S2, without murmur Abdomen: soft non-tender, non-distended Internal Medicine Assmt/Plan - Assessment Assessment: ACUTE COPD EXCERBATION ACUTE BRONCHITIS UTI INCREASING AGITATION SCHIZOAFFECTIVE DM-2 ERYTHROCYTOSIS LOW ALBUMIN THROMBOCYTOPENIA GOUT HYPERCHOLESTEREMIA - Plan Plan: CONTINUE IVABX BRONCHODILATORS SUPPLEMENTAL O2 F/U LABS
[2016-12-07 12:05] LABS: NEUTROPHILS 92 % (40-80); TOTAL CELLS COUNTED 100
[2016-12-07 12:06] LABS: PLATELET ESTIMATE ADEQUATE (NORMAL); PLATELET MORPHOLOGY NORMAL (NORMAL)
[2016-12-07] MEDS: Levofloxacin 500mg/100mL 500 MG/100 ML BAG IV SCH (19:54)
[2016-12-08] MEDS: methylPREDNISolone SS 40 mg Vial IVP SCH (06:34)
[2016-12-08] MEDS: INSULIN ASPART, RECOMBINANT 100 UNITS/ML SUBQ SCH ×2 (06:45→11:23)
[2016-12-08] MEDS: Ipratropium Neb 0.5 mg/2.5 mL UD HHN SCH ×3 (07:27→11:15)
[2016-12-08] MEDS: Albuterol Nebulizer 2.5mg/3mL HHN SCH ×4 (07:27→11:15)
--- NOTE | 2016-12-08 09:45 | Diagnostic Imaging Report ---
Portable chest x-ray History: Cough Allowing for portable technique the heart size is normal. No focal pulmonary parenchymal processes. No hilar or mediastinal abnormalities. Impression: No acute abnormalities.
[2016-12-08] MEDS: Benztropine 1 MG TAB PO SCH ×2 (09:46→18:35)
[2016-12-08] MEDS ORDERED: Nicotine 21 mg/24 hr Tdm TD SCH (10:00)
--- NOTE | 2016-12-08 13:04 | Internal Medicine Prog Note ---
Internal Medicine Subjective - Subjective Service Date: 12/08/16 Patient seen and examined:: with staff Patient is:: awake Per staff patient is:: no adverse event Internal Medicine Objective - Results Result Diagrams: 12/07/16 11:17 12/07/16 11:17 Recent Labs: Laboratory Last Values WBC 8.9 Th/cmm (4.8-10.8) D 12/07/16 11:17 RBC 4.45 Mil/cmm (3.80-5.10) 12/07/16 11:17 Hgb 14.5 gm/dL (11.7-15.5) 12/07/16 11:17 Hct 41.9 % (35.0-45.0) 12/07/16 11:17 MCV 94.2 fl (81-100) 12/07/16 11:17 MCH 32.5 pg (27.0-31.0) H 12/07/16 11: MCHC Differential 34.5 pg (28.0-36.0) 12/07/16 11:17 RDW 12.6 % (11.5-20.0) 12/07/16 11:17 Plt Count 157 Th/cmm (150-400) D 12/07/16 11:17 MPV 8.2 fl 12/07/16 11: Neutrophils % 59.7 % (40.0-80.0) 12/04/16 14:45 Lymphocytes % 27.6 % (20.0-50.0) 12/04/16 14:45 Monocytes % 6.9 % (2.0-10.0) 12/04/16 14:45 Eosinophils % 5.3 % (0.0-5.0) H 12/04/16 14:45 Basophils % 0.5 % (0.0-2.0) 12/04/16 14:45 Neutrophils (Manual) 92 % (40-80) H 12/07/16 11: Lymphocytes 5 % (20-50) L 12/07/16 11:17 Monocytes 3 % (2-10) 12/07/16 11:17 Platelet Estimate ADEQUATE (NORMAL) 12/07/16 11:17 Platelet Morphology NORMAL (NORMAL) 12/07/16 11:17 RBC Morph Micro Appear NORMAL (NORMAL) 12/07/16 11:17 Sodium 135 mEq/L (136-145) L 12/07/16 11:17 Potassium 3.8 mEq/L (3.5-5.1) 12/07/16 11:17 Chloride 105 mEq/L (98-107) 12/07/16 11:17 Carbon Dioxide 24.4 mEq/L (21.0-31.0) 12/07/16 11:17 Anion Gap 9.4 (7.0-16.0) 12/07/16 11:17 BUN 16 mg/dL (7-25) 12/07/16 11:17 Creatinine 0.5 mg/dL (0.6-1.2) L 12/07/16 11:17 Est GFR ( Amer) > 60.0 ml/min (>90) 12/07/16 11:17 Est GFR (Non-Af Amer) > 60.0 ml/min 12/07/16 11:17 BUN/Creatinine Ratio 32.0 12/07/16 11:17 Glucose 209 mg/dL (70-105) H 12/07/16 11:17 POC Glucose 177 MG/DL (70 - 105) H 12/08/16 11:14 Hemoglobin A1c % 5.3 % (4.0-6.0) 12/05/16 10:13 Uric Acid 4.5 mg/dL (2.3-6.6) 12/04/16 14:45 Calcium 9.4 mg/dL (8.6-10.3) 12/07/16 11:17 Total Bilirubin 0.3 mg/dL (0.3-1.0) 12/05/16 10:13 AST 13 U/L (13-39) 12/05/16 10:13 ALT 13 U/L (7-52) 12/05/16 10:13 Alkaline Phosphatase 83 U/L (34-104) 12/05/16 10:13 Ammonia 56 umol/L (16-53) H 12/05/16 10:13 B-Natriuretic Peptide 24.9 pg/mL (5.0-100.0) 12/05/16 10:13 Total Protein 6.8 gm/dL (6.0-8.3) 12/05/16 10:13 Albumin 3.6 gm/dL (3.7-5.3) L 12/05/16 10:13 Globulin 3.2 gm/dL 12/05/16 10:13 Albumin/Globulin Ratio 1.1 (1.0-1.8) 12/05/16 10:13 Vitamin B12 330 pg/mL (211-946) 12/05/16 10:13 Folic Acid 15.1 ng/mL (>3.0) 12/05/16 10:13 TSH 0.89 uIU/ml (0.34-5.60) 12/04/16 14:45 Urine Source CLEAN C 12/04/16 14:25 Urine Color YELLOW 12/04/16 14:25 Urine Clarity HAZY (CLEAR) 12/04/16 14:25 Urine pH 5.5 12/04/16 14:25 Ur Specific [place] 1.025 (1.005-1.030) 12/04/16 14:25 Urine Protein NEGATIVE mg/dL (NEGATIVE) 12/04/16 14:25 Urine Glucose (UA) NEGATIVE mg/dL (NEGATIVE) 12/04/16 14:25 Urine Ketones NEGATIVE mg/dL (NEGATIVE) 12/04/16 14:25 Urine Blood TRACE (NEGATIVE) 12/04/16 14:25 Urine Nitrate POSITIVE (NEGATIVE) H 12/04/16 14:25 Urine Bilirubin NEGATIVE (NEGATIVE) 12/04/16 14:25 Urine Urobilinogen 0.2 E.U./dL (0.2 - 1.0) 12/04/16 14:25 Ur Leukocyte Esterase SMALL (NEGATIVE) H 12/04/16 14:25 Urine RBC 2-5 /hpf (0-5) 12/04/16 14:25 Urine WBC 6-10 /hpf (0-5) H 12/04/16 14:25 Ur Epithelial Cells FEW /lpf (FEW) 12/04/16 14:25 Urine Bacteria MODERATE /hpf (NONE SEEN) 12/04/16 14:25 RPR NONREACTIVE (NONREACTIVE) 12/04/16 14:45 - Physical Exam Vitals and I&O: Vital Signs Temp 97 F 12/08/16 04:29 Pulse 88 12/08/16 11:18 Resp 18 12/08/16 11:18 BP 169/79 12/08/16 09:46 Pulse Ox 96 12/08/16 11:18 Intake & Output 12/07/16 12/08/16 12/08/16 18:59 06:59 18:59 Intake Total 2100 Balance 2100 Intake: Intake, IV Amount 1100 Levofloxacin 500mg/100mL 100 500 mg In 100 ml @ 100 mls/hr IV Q24HR [facility] Rx#: [id number] Sodium Chloride 0.45% 1, 1000 000 ml @ 70 mls/hr IV . [id number] [facility] Rx#:[id number] Oral 1000 Other: # Voids 3 Stool Characteristics Soft Formed Active Medications: Current Medications Allopurinol (Zyloprim) 100 mg PO DAILY [facility] Stop: 02/03/17 08:59 Last Admin: 12/08/16 09:46 Dose: 100 mg Benazepril HCl (Lotensin) 20 mg PO DAILY [facility] Stop: 02/03/17 08:59 Last Admin: 12/08/16 09:46 Dose: 20 mg Benztropine Mesylate (Cogentin) 1 mg PO BID [facility] Stop: 02/03/17 08:59 Last Admin: 12/08/16 09:46 Dose: 1 mg Haloperidol (Haldol) 5 mg PO BID [facility] PRN Reason: Protocol Stop: 02/03/17 08:59 Last Admin: 12/08/16 09:46 Dose: 5 mg Metformin HCl (Glucophage) 850 mg PO BIDWM [facility] Stop: 02/03/17 17:59 Last Admin: 12/08/16 09:46 Dose: 850 mg Montelukast Sodium (Singulair) 10 mg PO DAILY [facility] Stop: 02/03/17 08:59 Last Admin: 12/08/16 09:46 Dose: 10 mg Nicotine (Nicotine Transdermal System) 21 mg TD DAILY [facility] Stop: 02/06/17 09:59 Olanzapine (Zyprexa) 5 mg PO HS [facility] PRN Reason: Protocol Stop: 02/02/17 20:59 Last Admin: 12/07/16 20:30 Dose: 5 mg Paroxetine HCl (Paxil) 20 mg PO DAILY [facility] PRN Reason: Protocol Stop: 02/03/17 17:59 Last Admin: 12/08/16 09:46 Dose: 20 mg Prednisone (Deltasone) 10 mg PO DAILY [facility] Stop: 12/13/16 08:59 Simvastatin (Zocor) 40 mg PO QPM [facility] PRN Reason: Protocol Stop: 02/03/17 16:59 Last Admin: 12/07/16 17:05 Dose: 40 mg Temazepam (Restoril) 30 mg PO HS [facility] Stop: 02/02/17 21:29 Last Admin: 12/07/16 20:30 Dose: 30 mg HEENT: NC/AT, PERRLA Neck: Supple Lungs: CTAB Cardiovascular: RRR, Normal S1, Normal S2, without murmur Abdomen: soft non-tender Internal Medicine Assmt/Plan - Assessment Assessment: ACUTE COPD EXCERBATION ACUTE BRONCHITIS UTI INCREASING AGITATION SCHIZOAFFECTIVE DM-2 ERYTHROCYTOSIS LOW ALBUMIN THROMBOCYTOPENIA GOUT HYPERCHOLESTEREMIA - Plan Plan: dc once bed available at [facility]
[2016-12-08 15:35] LABS: HEMATOCRIT 43.6 % (35.0-45.0); HEMOGLOBIN 14.9 gm/dL (11.7-15.5); MEAN CELL VOLUME 93.9 fl (81-100); MEAN CORPUSCULAR HEMOGLOBIN 32.2 pg (27.0-31.0); MEAN CORPUSCULAR HGB CONC 34.3 pg (28.0-36.0); MEAN PLATELET VOLUME 8.2 fl; PLATELET COUNT 188 Th/cmm (150-400); RED BLOOD COUNT 4.64 Mil/cmm (3.80-5.10); RED CELL DISTRIBUTION WIDTH 12.9 % (11.5-20.0); WHITE BLOOD COUNT 9.8 Th/cmm (4.8-10.8)
[2016-12-08 15:53] LABS: ANION GAP 8.4 (7.0-16.0); BUN - UREA NITROGEN 21 mg/dL (7-25); CARBON DIOXIDE 25.8 mEq/L (21.0-31.0); CHLORIDE 105 mEq/L (98-107); CREATININE - SERUM 0.5 mg/dL (0.6-1.2); GLUCOSE 129 mg/dL (70-105); POTASSIUM SERUM 4.2 mEq/L (3.5-5.1); SODIUM SERUM 135 mEq/L (136-145)
[2016-12-08 16:01] LABS: NEUTROPHILS 86 % (40-80); PLATELET ESTIMATE ADEQUATE (NORMAL); PLATELET MORPHOLOGY NORMAL (NORMAL); TOTAL CELLS COUNTED 100
--- NOTE | 2017-01-18 08:41 | Discharge Summary ---
FINAL DIAGNOSES: Acute chronic obstructive pulmonary disease exacerbation, acute bronchitis, urinary tract infection, increasing agitation, schizoaffective disorder, diabetes, erythrocytosis, low albumin, thrombocytopenia, gout, hypercholesterolemia. HISTORY OF PRESENT ILLNESS: A 51-year-old female with a history of diabetes, hypertension, hypercholesterolemia who was admitted from [facility] secondary to increasing agitation, shortness of breath. The patient was seen in the ER and diagnosed with COPD exacerbation. PHYSICAL EXAMINATION: GENERAL: The patient is well developed, well nourished, no acute distress. VITAL SIGNS: Stable. HEENT: Head: Normocephalic, atraumatic. NECK: Supple. No mass. LUNGS: Clear bilaterally. HEART: Regular rate and rhythm. ABDOMEN: Soft and nontender. HOSPITAL COURSE: During the hospital stay, the patient was admitted to the med/surg unit. The patient was kept on IV fluids for hydration. Also, bronchodilators and IV steroids was given as well. The patient's electrolytes levels are being monitored as well. The patient had a sputum culture done and it was negative for any growth, also MRSA of the nares was negative. The patient had a 1:1 sitter for safety. The patient also had a consultation with Dr. Rojo for psychosis. The patient was stable for discharge. CONDITION UPON DISCHARGE: Fair. DISPOSITION: ____ [facility]. JOB# [id number]
== END 2016-12-08 18:00 | DRG 191 ==
LOC: ER 14:08 → MSI 17:45
PROVIDERS: ADMIT Internal Medicine; ATTEND Internal Medicine
DX: J44.0 Chronic obstructive pulmonary disease with (acute) lower respiratory infection (principal); N39.0 Urinary tract infection, site not specified; D69.6 Thrombocytopenia, unspecified; J44.1 Chronic obstructive pulmonary disease with (acute) exacerbation; J20.9 Acute bronchitis, unspecified; F25.9 Schizoaffective disorder, unspecified; E11.9 Type 2 diabetes mellitus without complications; D75.1 Secondary polycythemia; E78.00 Pure hypercholesterolemia, unspecified; I10 Essential (primary) hypertension; M10.9 Gout, unspecified; E78.5 Hyperlipidemia, unspecified; F17.210 Nicotine dependence, cigarettes, uncomplicated; Z83.3 Family history of diabetes mellitus; Z82.49 Family history of ischemic heart disease and other diseases of the circulatory system; Z90.49 Acquired absence of other specified parts of digestive tract
CPT/HCPCS: 36415-UA; 71010-TC; 80048-TC; 80053-TC; 81001-TC; 82140-TC; 82607-90; 82746-90; 82948-90; 83036-90; 83880-TC; 84443-TC; 84550-TC; 85007-TC; 85025-TC; 85027-TC; 86592-TC; 87070; 90779; 93005; 94760; J1644; J1815; J1956; J2920; J7051; J7613; Z7610